=== PATIENT | male | born 1960 | race Caucasian/White ===

== ENCOUNTER 2021-03-04 18:00 | Inpatient (IN) | payer OTHER ==
[~2021-03-04] VITALS: Ht 182.9 cm; Wt 74.4 kg
--- NOTE | ~2021-03-04 | D ---
[facility] [place] [address] DISCHARGE SUMMARY Name: RAKESH CUEVA Room #: 528A-A [facility] IN M.R.#: [id number] Admission: 03/05/21 Attend Phys: Mckinley Mahmood DO Discharge: 03/10/21 Date of : 64 Report #: [id number] THIS REPORT FOR: cc: FAM - No family physician/PCP FAM - No family physician/PCP Mckinley Mahmood DO ~ DATE OF SERVICE: 03/10/2021 INPATIENT PSYCHIATRIC DISCHARGE SUMMARY ATTENDING PSYCHIATRIST: Mckinley Mahmood DO EMERGENCY MEDICAL SERVICE MANAGER AT TIME OF DISCHARGE: Vinnie Dixon M.D. DISCHARGE DIAGNOSES: Unspecified psychosis, resolved; substance use disorder for alcohol, severe degree; neurocognitive disorder, unspecified, likely due to alcoholism. MEDICAL COMORBIDITIES: Include ringworm, resolving; debility; history of AK without stenting on Coreg. DISCHARGE DISPOSITION: The patient is discharged to his apartment in [place], [place]. The patient is encouraged to establish with [facility] for dual diagnosis treatment and he was given an intake information. He has a primary care physician, ____ Priscila. He is encouraged to see within 1 month and actually there is an appointment social media sr strategy manager made for 03/23/2021 at 1000 hours. DISCHARGE MEDICATIONS: The patient's medications were e-scribed to [facility] in [place]. He has cephalexin 500 mg every 6 hours for 8 more doses for his wound infection, Coreg 3.125 mg oral twice daily with meals, Rx given for #60 for his hypertension, B12 500 mcg oral daily for supplementation, Rx given for #90, folic acid 1 mg oral daily for supplementation, Rx given for #90. DISCHARGE INSTRUCTIONS: Regular diet. No alcohol, no illicit drugs. The patient was given crisis suicide hotline information. He has a normal activity level. LABORATORY DATA: Significant laboratories this admission, hematology from 03/05, H and H of 13.0 and 39.5. He does have a macrocytosis of 103.4, white count 5.7, platelet count 231. Chemistries: Sodium 141 from 03/05, potassium 3.8, chloride 104, bicarbonate 25, anion gap 12, BUN 9, creatinine 0.8, estimated GFR ____, glucose 90, hemoglobin A1c 4.8, calcium 8.6, triglycerides 42, total cholesterol 195, LDL 80, HDL 97. B12 400, folate 3.9, which was low. TSH 2.184. Serum alcohol was negative on 03/05. COVID-19 PCR was negative on ____. [address] [address] DISCHARGE SUMMARY Name: RAKESH CUEVA Room #: 528A-A [facility] IN ..#: [id number] Admission: 03/05/21 Attend Phys: Mckinley Mahmood DO Discharge: 03/10/21 Date of : 64 Report #: [id number] REASON FOR ADMISSION: The patient was initially seen in the [facility] on the [place] side. He had fallen and lacerated his right arm. The patient had a significant level of alcohol intoxication and was quite cognitively impaired. Records from [facility] HOSPITAL COURSE: The patient was admitted to Geriatric Psychiatry Unit. He was placed on the CIWA protocol which was continued for over 24 hours. He had an uneventful detox. The patient does not have a more supportive living situation and has a brother who lives in [place] is somewhat estranged. The patient does have some detectable cognitive deficits, he scored a 23/30 on the [facility] Mental status examination. At this point, I would recommend wraparound dual diagnosis services as well as continued primary care. Abstinence from alcohol is essential, PT and OT saw the patient. The OT ____ with no problems. On the day of discharge, the patient was not suicidal or homicidal. PHYSICAL EXAMINATION: VITAL SIGNS: Temperature 36.1, pulse 78, respirations 17, BP 131/80, O2 sat 100%. MUSCULOSKELETAL: Slow gait, normal station, unkempt with appearance. MENTAL STATUS EXAMINATION: This is a well-developed, somewhat ill-appearing male appearing stated age. Attention limited. Concentration limited. Speech normal rate, volume, and tone. Thought process: Linear and goal directed. Thought content focused on discharge. Mood and affect are more constricted. Denied SI, HI. Denied auditory, visual, or tactile hallucination. Denied hopelessness, helplessness. Memory not formally tested. Insight and judgment were fair to sometimes limited. Fund of knowledge, no greater than average. Prognosis for this patient is guarded given his limited social support and long history of alcoholism. By: 05 04 Mckinley Mahmood, /nt
[2021-03-04 18:02] VITALS: BP 130/76
--- NOTE | 2021-03-04 19:10 | NUR ---
REPORT GIVEN APARNA MCWILLIAMS AT THIS TIME
[2021-03-05 02:45] VITALS: BP 156/88
[2021-03-05 04:00] VITALS: BP 123/78
--- NOTE | 2021-03-05 05:11 | NUR ---
PATIENT WAS ADMITTED TO THE UNIT VIA STRETCHER FROM THE ER. PATIENT IS AAOX3. STATES THAT HE DID NOT WANT TO COME TO A PSYCHIATRIC BLOCK. STATES THAT HE IS NOT SUICIDAL OR HOMICIDAL. STATES THAT HE DOES HAVE A DRINKING PROBLEM AND IS GETTING FORGETFUL. STATES THAT HE IS LONELY AND NEEDS ASSISTANCE OF SOME SORT TO HELP HIM WITH DAILY ACTIVITIES SUCH COOKING A FINANCES. PATIENT IS CALM AND COOPERATIVE AND SIGNS IN VOLUNTARILY. NOTED THAT PATIENT HAS ABRASIONS THROUGHOUT THE TOP OF HIS HEAD. HE ALSO HAS 3 LACERATIONS ON HIS R FA INCLUDING ONE THAT HAS BEEN STAPLED. DRESSING IS CHANGED AND WOUNDS ARE CLEAN AND DRY. PATIENT IS ABLE TO AMBULATE GINGERLY DUE TO HIS BACK HURTING. PT STATES THAT ALL OF HIS INJURIES OCCURED WHEN HE FELL AT HOME AND WENT THROUGH A GLASS TABLE. PATIENT IS GIVEN NON SKID SOCKS AND BED ALARM IS SET IN PLACE. PATIENTS VITAL SIGNS ARE STABLE. NOTIFIED TED HUNG NP AND JO-ANN MAGANA NP OF PT ARRIVAL TO THE UNIT. PT IS PLACED ON CIWA PROTOCOL. WILL CONTINUE TO MONITOR PATIENT FOR CHANGE IN STATUS.
[2021-03-05 06:43] LABS: CHOLESTEROL 185 mg/dL (<200); HDL CHOLESTEROL 97 mg/dL (>40); LDL CHOLESTEROL 80 mg/dL (<100); TC:HDL 1.9 Ratio (Not establshd); TRIGLYCERIDE 40 mg/dL (<150); VLDL 8 mg/dL (<40)
[2021-03-05 06:44] LABS: SERUM ASSESSMENT Clear
[2021-03-05 10:18] VITALS: BP 139/95
[2021-03-05 10:37] VITALS: BP 139/95
[2021-03-05 11:10] LABS: ABSOLUTE NEUTROPHILS 3.4 thou/uL (1.4-8.2); BASOPHILS 0.7 % (0.0-2.0); EOSINOPHILS 2.3 % (0.0-3.0); HEMATOCRIT 39.5 % (42.0-52.0); LYMPHOCYTES 24.1 % (24.0-44.0); MCH 33.9 pg (26.0-34.0); MCHC 32.8 g/dL (28.0-37.0); MCV 103.4 fL (80.0-100.0); MONOCYTES 12.7 % (1.0-8.0); PLATELET COUNT 231 thou/uL (150-400); POLYS 60.2 % (36.0-66.0); RBC 3.82 mil/uL (4.50-6.00); RDW 13.7 % (10.5-14.5); WBC 5.7 thou/uL (4.0-11.0)
[2021-03-05 11:58] LABS: FOLIC ACID 3.9 ng/mL (8.6-58.9)
[2021-03-05 12:00] LABS: CALCIUM 8.6 mg/dL (8.5-10.1); CREATININE 0.8 mg/dL (0.7-1.3); POTASSIUM 3.8 mmol/L (3.5-5.1)
--- NOTE | 2021-03-05 15:59 | NUR ---
RESUMMED CARE FROM OVERNIGHT SHIFT THIS AM, PATIENT IN DAY ROOM SITTING QUIET. PATIENT ALERT ORIENTED TIMES 4 PATIENT DENIES SI/HI/AH/VH AT PRESENT. PATIENT ATE MEALS TOOK MEDICATION WITHOUT INCIDENCE. PATIENTS RT ARM HAS A WOUND WITH STITCHES AND TOAN, THE WOUND NURSE CAME AND LOOKED ATE THE AREA AND ASK ME TO PUT A CONSULT FOR DR QUAN. I CALLED DR AVILES AND TOLD HIM THE AREA WAS RED AND COULD POSSIGLY HAVE SOME INFECCTION. DR AVILES ORDERED KEFLEX FOR PATIENT TO TAKE. PATIENTS ABDOMEN SOFT BOWEL SOUNDS PRSENT, PATIENTS LUNGS CLEAR. PATIENT PARTICIPATED IN GROUPS PATIENTS CIWA WAS A 3 THIS AM, THIS EVENNG HIS SCORE WAS A O. PATIENT UP WALKING AROUND WITH A WALKER, WILL CONTINUE TO MONITOR PATIENT FOR SAFETY AND BEHAVIORS.
--- NOTE | 2021-03-05 17:03 | NUR ---
ENOCH, Dr. Brown, and INCIDENT RESPONSE LEAD student met with the Pt. Pt was able to complete the assessment. Pt reported ETOH abuse. Pt stated he drinks about 1 pint of whiskey per day. Pt reported he has struggeld with ETOh abuse since college. Pt denied current drug use. Pt used marijuana in college. Pt reported attending AA for several years off and on. Pt stated his mother was an alcholic. Pt denied any physical or sexual abuse as an adult or child. Pt recieved SSI and has a payee. Pt could not remember who his payee was. Pt stated his brother Avinash Zuleta was his guardian. Pt did not know the name of his PCP. Pt denied any prior psychiatric stays. Pt denied SI/HI, AH/VH. Pt did give permission to contact his brother Avinash, but did not wish to stay in the room for the call. SW and INCIDENT RESPONSE LEAD student were able to contact Avinash and speak with him. Avinash stated he is no longer the Pt's guardian. Avinash gave some background. Pt has been in several nursing homes. Pt was dx with and alchol indueced dementia. Pt and Avinash don't get along. Pt has become "hateful" toward Avinash and beleived Avinash has taken items from him. Avinash stated he is unable to visit the Pt due to Pt getting aggitated and police having to be involved. Avinash stated he is able to assist in any way. There were no other questions or concerns at this time.
[2021-03-05 19:36] VITALS: BP 141/95
[2021-03-05 23:06] LABS: GLYCOHEMOGLOBIN (HGB A1C) 4.8 % (4.8-5.6)
--- NOTE | 2021-03-06 01:47 | NUR ---
PATIENT IS AAOX3 RESTING IN THE COMMON AREA. EXHIBITS NO S/S OF WITHDRAWAL. STATES THAT HE HAS HAD A GOO DDAY TODAY. PATIENT IS CALM POLITE AND COOPERATIVE. TAKES ALL OF HIS MEDICATINS ORDERED. STATES THAT HE IS FOCUSED ON GETTING THE HELP HIS NEEDS WITH SUBSTANCE ABUSE WELL THERAPY. HE COMPLIES WITH ALL INSTRUCTIONS. VSS. WILL CONTINUE TO MONITPR FOR CHANGES IN PATINT STATUS.
--- NOTE | 2021-03-06 10:58 | NUR ---
New admit to [facility] with etoh abuse, fall with lacerations. At time of visit, pt working with therapy. Chart reviewed, has eaten 100% of first few meals on the unit. Had 2 different wts 164 vs 190 lb and 164 lb appears most accurate. BMI 22 wnl. Folate deficient 3.9 and on folic acid supplement as well as B12, vitamin, thiamine. Low nutrition risk with appopriate nutrition interventions in place. Follow weights and intake trends for weekly team meeting.
[2021-03-06 11:19] VITALS: BP 142/97
[2021-03-06 11:30] VITALS: BP 142/97
--- NOTE | 2021-03-06 13:29 | NUR ---
RESUMMED CARE FROM OVERNIGHT SHIFT THIS AM, PATIENT ALERT ORIENTED TIMES 4. PATIENT ATE BREAKFAST TOOK MEDIATION WITHOUT INCIDENCE; I CHANGED PATIENT GAUZE ON RIGHT ARM. PATIENT DENIES SI/HI/AH/VH AT PRESENT, PATIENT PARTICIPATES IN GROUPS. PATIENTS ABDOMEN SOFT BOWEL SOUNDS PRESENT, PATIENTS LUNGS CLEAR. PATIENT INTERACTS WITH OTHER PATIENTS NO BEHAVIORS. WILL CONTINUE TO MONITOR PATIENT FOR SAFETY AND BEHAVIORS.
[2021-03-06 19:54] VITALS: BP 113/75
--- NOTE | 2021-03-07 03:20 | NUR ---
PATIENT IS AAOX4. HE IS CALM COOPERATIVE AND FOLLOWS ALL COMMANDS. TAKES ALL MEDICATIONS PRESCRIBED. STATES THAT HE FEELS HE SHOULD BE IN A DIFFERENT UNIT DUE TO THE FACT THAT HE IS NOT HAVING SI OR HI. STATES THAT HE HAS NEVER WANTED TO HURT HIMSELF OR ANYBODY ELSE. PT COGNITIVE ABILITY MUCH MORE ADVANCED THAN OTHER PEERS ON THE UNIT. HE HAS SHOWN NO S/S OF WITHDRAWAL FROM HIS ETOH ABUSE. VITAL SIGNS REMAIN STABLE. DENIES PAIN OR NEEDS. DRESSING TO R FA CHANGES.
[2021-03-07 07:34] VITALS: BP 134/94
--- NOTE | 2021-03-07 12:13 | NUR ---
HAS BEEN VISIBLE IN DAYROOM SITTING WITH PEERS CARLOS MANUEL OF AM-DID ATTEND ALL SCHEDULED GROUPS WTH GOOD LEVEL OF PARTICIPATION. DENIES SI/SH/HI.
--- NOTE | 2021-03-07 13:21 | NUR ---
vs q 4 hrs per ciwa protocol-no noted or reported tremor,n/v,elvated bp etc.. pt denies any s/s of etoh withdrawl
--- NOTE | 2021-03-07 19:33 | NUR ---
ASSUMED CARE ON 03/07/21 @ 1900, NO WITHDRAWAL SYMPTOMS NOTED NOR REPORTED. REQUESTS COFFEE AND ACCEPTED EDUCATION OF WHY CAFFENE IS INCOMPATABLE WITH MEDICATIONS AND SLEEP. BECOMES AGITATED AND IMPATIENT WITH PEERS HAVING BEHAVIORS, HOLLERING AT PEERS. WILL CONTINUE TO MONITOR FOR SAFETY AND COMFORT.
[2021-03-07 19:45] VITALS: BP 130/75
--- NOTE | 2021-03-07 22:30 | H ---
[facility] [address] [place] [address] HISTORY AND PHYSICAL Name: RAKESH CUEVA Room #: 527A-A ADM IN M.R.#: [id number] Admission: 03/05/21 Attend Phys: Mckinley Mahmood DO Discharge: Date of : 64 Report #: [id number] THIS REPORT FOR: cc: FAM - No family physician/PCP FAM - No family physician/PCP Mckinley Mahmood DO ~ DATE OF SERVICE: 03/05/2021 INPATIENT PSYCHIATRIC EVALUATION ATTENDING PSYCHIATRIST: Mckinley Mahmood DO CABIN CREW: Marcy Obrien APRN and Rusty Piña MD and his hospitalist team. REASON FOR ADMISSION: Concern for alcohol withdrawal complications, concern for neurodegenerative disorder. SOURCES OF INFORMATION: Interview with the patient, records from [facility], records here at [facility]. CHIEF COMPLAINT: "I dont know why I was sent here" HISTORY OF PRESENT ILLNESS: This is a 60-year-old male transferred from [facility] ER. Apparently, he called 911 for falling, hit his arm on a glass table, large laceration, significant blood loss, required tamika. He has a past medical history of substance use disorder for alcohol, severe; Wernicke's encephalopathy. In terms of his drinking behavior, he reports drinking a pint a day of whiskey. His blood alcohol level on 03/05/2021 in the ER presentation was 341. The patient denied anxiety, feelings of hopelessness, SI, TATE, auditory or visual hallucinations. He denies history of alcohol withdrawal seizures or delirium tremens. The patient does display fine tremor with both his arms and hands extended. MEDICATIONS: No medications. ALLERGIES: No known allergies. REVIEW OF SYSTEMS: from [facility] CONSTITUTIONAL: Denies fever or chills. Reports 6/10 crampy and lower back pain from his fall. HEENT: Denies tinnitus, sore throat, eye pain. Reports blurred vision without prescription glasses. RESPIRATORY: Denies shortness of breath or cough. CARDIOVASCULAR: Denies chest pain, heart palpitations. GASTROINTESTINAL: Denies nausea, vomiting, diarrhea, constipation. [facility] [address] [place] [address] HISTORY AND PHYSICAL Name: RAKESH CUEVA Room #: 527A-A ADM IN [facility].#: [id number] Admission: 03/05/21 Attend Phys: Mckinley Mahmood DO Discharge: Date of : 64 Report #: [id number] GENITOURINARY: Denies difficulty urinating, painful urination. MUSCULOSKELETAL: Denies joint pain, numbness or tingling in extremities. SKIN: Reports itching on scalp. He does have skin lesions concerning for atopy versus parasite in nature and consultation has been requested. LABORATORY DATA: From [facility], white blood count 5.7, hemoglobin 13.0, hematocrit 39.5, platelets 231. Sodium 141, potassium 3.9, BUN 9, creatinine 0.8, glucose 99. Folate 3.9. Serum alcohol less than 10. VITAL SIGNS: Temperature 36.3, pulse 86, respirations 16, BP 139/95, O2 sat 98% on room air. PAST PSYCHIATRIC HISTORY: Includes alcohol use disorder, severe. He had a past CD stay for 30 days. Alcoholics Anonymous on and off for years, attempted sobriety on and off a few times. Unclear diagnosis of Wernicke-Korsakoff syndrome. FAMILY PSYCHIATRIC HISTORY: Reports alcoholism runs in his family. PAST MEDICAL HISTORY: Myocardial infarction, age of 44. Uncertain of the primary care physician name and location. PAST SURGICAL HISTORY: Denies. SOCIAL HISTORY: Born in [place], moved to [place], [place] when he was 3. Graduated with a bachelor's degree at [employer], x1 for 11 years. Moved to [place] for 11 years to raise his 2 children, daughter and son. Moved to [place], [place] after he and his because at time his father who is now , lived in [place]. The patient lives now in [place], [place] in an apartment by himself. Poor social support, no contact with his children for 2 years. Uncertain where they are currently living. Uncertain, past occupations, currently on disability for "my heart attack and memory." His brother used to be his legal guardian, unable to hold his guardianship due to dysfunctional dynamics between him and his brother. He has not been seen, talk with him for about 4 months now stating "he has a real hatred for me, blames me for everything that went on in his life." The patient states he cannot remember if his brother is still his guardian. "I have a lady who pays my bills for me, but I do not know her name." He further reports poverty of food and lack of transportation. Denies tobacco or illicit substance use. MENTAL STATUS EXAMINATION: A 60-year-old male presenting stated age, [facility] [address] [place] [address] HISTORY AND PHYSICAL Name: RAKESH CUEVA Room #: 527A-A ADM IN M.R.#: [id number] Admission: 03/05/21 Attend Phys: Mckinley Mahmood, DO Discharge: Date of : 64 Report #: [id number] disheveled, multiple head lacerations, rash around his neck concerning for ITP versus parasitic in nature, hematoma on his right arm with tamika. He has a Kerlix wrapped around his right lower forearm. Fair eye contact, normal rate and tone and speech. Thought process: Linear and goal directed with some blocking. Denied suicidal or homicidal ideation, though some helplessness. He was alert and oriented x4. Insight fair to limited. Judgment limited. Fund of knowledge fair. Attention and concentration, gross executive dysfunction, unable to draw a clock with correct time. He had an error on SLUMS subtle, but his deficits are in the executive memory arena. FORMULATION: A 60-year-old male transferred here for concern of alcohol withdrawal, altered mental status, concern of dementia. DIAGNOSES: At this time, substance use disorder for alcohol, severe degree; alcohol intoxication, resolved; alcohol withdrawal currently, rule out major neurocognitive disorder; Wernicke-Korsakoff syndrome by history. PLAN: Place the patient on CIWA protocol. Start scheduled thiamine 100 mg 3 times a day. We will see how he does the next day, getting through alcohol withdrawal. Additional information laboratories today showed white count 5.7, H and H 13.0 and 39.5, MCV 103.4. ANC was normal, slightly increased monocyte percentage. His CMP was completely normal. B12 level 400, folate 3.9. TSH 2.184. As he is now already inclined to go ahead and put him on B12 supplementation, looks like the hospitalist has done. Additional plan includes complete CIWA protocols, cephalexin 500 mg q. 6, started by Dr. Dixon as well as Mupirocin ointment for forearm laceration and folic acid as well, vitamin. ESTIMATED LENGTH OF STAY: 5-10 days. One of the challenges of the situation is since he is a [place] resident, there is no way we could get him a guardianship. We will assess his functional level and further supports for him and have to be worked out after discharge because I think he is going to have to go back to his apartment in [place] no matter what. We will attempt to get the family involved. Time spent on this case, greater than 60 minutes, greater than 50% of time was review of records and coordination of care. stengths: insured, has apartment [address] [address] HISTORY AND PHYSICAL Name: RAKESH CUEVA Room #: 527A-A ADM IN .R.#: [id number] Admission: 03/05/21 Attend Phys: Mckinley Mahmood DO Discharge: Date of : 64 Report #: [id number] weaknesses: chronic alcoholism, poor cpoing skills, isolated cognitive impairment <ELECTRONICALLY SIGNED> By: Mckinley Mahmood DO 03/07/21 2230 [id number] Mckinley Mahmood, DO /nt
[2021-03-08 10:45] VITALS: BP 132/86
[2021-03-08 10:47] VITALS: BP 132/86
--- NOTE | 2021-03-08 13:06 | NUR ---
RESUMMED CARE FROM OVERNIGHT THIS AM, PATIENT SITTING IN DAY ROOM QUIET. PATIENT ALERT ORIENTED TIMES 4 PATIENT ATE BREAKFAST TOOK MEDICATION WITHOUT INCIDENCE. PATIEMT DENIES SI/HI/AH/VH AT PRESENT, PATIENTS LUNGS CLEAR ABDOMEN SOFT BOWEL SOUNDS PRESENT. PATIENT CALM COOPERATIVE PARTICIPATES IN GROUPS PATIENT HAS NOT DISPLAYED ANY BEHAVIORS HE WOULD LIKE SOME SERVICES AT HOME FOR HE DISCHARGES. PATIENTS WOUND IS LOOKING GOOD LESS REDNESS WILL CONTINUE TO MONITOR PATIENT FOR SAFETY AND BEHAVIORS.
--- NOTE | 2021-03-09 02:06 | NUR ---
PATIENT SAT UP IN DINING ROOM THIS EVENING WATCHING THE Telecardia SERIES UNTIL 2200 WHEN HE WENT TO BED. HE HAD C/0 LEFT SIDED BACK PAIN FROM EXTENSIVE BRUISING FROM A FALL BEFORE COMING TO THE HOSPITAL. TYLENOL 650MG PO GIVEN WITH PAIN RELIEF. PATIENT ALSO HAS A DRESSING ON RIGHT FOREARM COVERING TOAN FROM FALL BEFORE ADMISSION ALSO. TOAN INTACT AND NO SIGN OF INFECTION OR DRAINAGE. PATIENT ALSO HAS RING WORM ON NECK AND CHEST. MEDS APPLIED. NO ITCHING NOTED. SCABS ON PATIENT'S SCALPS DRY AND INTACT. PATIENT IS UP WITH WALKER. HE IS A/0X2-3 AND IS FORGETFUL. HE DENIES SI/HI/AVH. PATIENT TOOK HIS MEDS WHOLE WITH WATER. HE HAS BEEN CALM AND COOPERATIVE. HE HAD HS SNACK. HE IS VERY CONCERNED ABOUT THE BEHAVIORS OF OTHER PATIENTS AND IS CONCERNED FOR THE SAFETY OF THE STAFF THAT HAVE TO INTERVENE WITH THE NEGATIVE BEHAVIORS OF PATIENTS. ASSURED HIM THAT THE STAFF IS TRAINED AND THAT SECURITY GETS HERE QUICKLY WHEN CALLED. THANKED HIM FOR HIS CONCERN. HE STATES IT'S HARD FOR HIM TO SIT BACK AND NOT STEP IN AND HELP PROTECT OTHERS. ROUTINE ROUNDS TO ASSESS SAFETY AND STATUS OF PATIENT. BED IN LOW POSITION AND BED ALARM IS ON.
[2021-03-09 09:39] VITALS: BP 140/91
--- NOTE | 2021-03-09 11:01 | HC ---
[facility] [place] [address] [place] [address] CONSULTATION Name: ANAYRAKESH PINK Room #: 527A-A ADM IN M.R.#: [id number] Admission: 03/05/21 Attend Phys: Mckinley Mahmood DO Discharge: Date of : 64 Report #: [id number] THIS REPORT FOR: cc: FAM - No family physician/PCP FAM - No family physician/PCP John Funes MD ~ DATE OF SERVICE: 03/05/2021 CHIEF COMPLAINT: Rash and a traumatic wound. HISTORY OF PRESENT ILLNESS: This is a 60-year-old male patient who was admitted to the geriatric psych unit from . He has a history of Wernicke's encephalopathy related to previous alcohol use. He was noted to have a laceration to his right forearm, which had undergone repair perhaps as recently as in the last day or two. The patient has very little information to provide about the injury. He also was noted to have a rash on the back of his neck for which I have been asked to see him. PAST MEDICAL HISTORY: Positive for history of alcohol abuse and encephalopathy. Other details of his past history are unknown and the patient is a very unreliable historian. ALLERGIES: No known drug allergies. MEDICATIONS: Include Tylenol, Keflex, cyanocobalamin, famotidine, folic acid. SOCIAL HISTORY: Positive for significant alcohol use. Tobacco unknown. FAMILY HISTORY: Unknown. REVIEW OF SYSTEMS: Really unobtainable other than what is listed in the history of present illness. The patient is unable to provide any specific information. PHYSICAL EXAMINATION: VITAL SIGNS: The patient's vital signs at this time include temperature 98.6, pulse 88, respiratory rate 18, blood pressure 123/78. GENERAL: This is a chronically ill-appearing male patient who appears to be in no obvious distress. HEENT: Head is normocephalic. Extraocular movements are intact. Nose and throat are clear. NECK: Supple. LUNGS: Diminished. HEART: Regular. ABDOMEN: Soft. SKIN: Examination of the skin shows erythematous patches on the back of his neck and upper back that may be consistent with tinea, question that the patient [address] [address] CONSULTATION Name: RAKESH CUEVA Room #: 527A-A ADM IN [facility].#: [id number] Admission: 03/05/21 Attend Phys: Mckinley Mahmood DO Discharge: Date of : 64 Report #: [id number] has a laceration to the volar surface of his right forearm and has sutures and tamika in place, does not appear to be overtly infected. LABORATORY STUDIES: Include sodium 141, potassium 3.8, chloride 104, CO2 of 25, BUN 9, creatinine 0.8, glucose of 90. White blood cell count 5.7 with a hemoglobin of 13.0, hematocrit of 39.5. CLINICAL IMPRESSION: 1. Traumatic laceration and abrasions to the right forearm. 2. Tinea to the posterior neck and upper back. RECOMMENDATIONS: At this point, we will recommend topical Bactroban ointment, Xeroform, Kerlix and tape to the right forearm. Antibiotics have currently been ordered. We recommend that the suture material be left in place for 10 to 14 days. Additionally, we will recommend topical clotrimazole cream to the neck and upper back areas to be applied b.i.d. Hopefully, keeping the area clean and dry. Recommend aggressive nutritional support. I appreciate being asked to see him in consultation. <ELECTRONICALLY SIGNED> By: John Funes MD 03/09/21 1101 [id number] John Funes MD /nt
--- NOTE | 2021-03-09 17:35 | NUR ---
ENOCH contacted Dorian Cristina, , at [facility] concerning the Pt's property. ENOCH informed the Pt believes he left his wallet and keys at the hospital. Dorian stated she would check and call ENOCH back. ENOCH later recieved a call back from Dorian. Dorian informed she was able to to speak with the Nurse who worked with the Pt in the ER, Meghann. Meghann reported that she wrote a note concerning the Pt's property. In the note there was no wallet or keys idenitifed in the Pt's property at admission or discharge. There were no other concerns during this call. ENOCH checked the Pt's inventory sheet here on [facility]. Pt did not arrive with any property
--- NOTE | 2021-03-09 17:41 | NUR ---
ENOCH spoke with the Pt concerning discharge. ENOCH informed Pt that [facility] did not have record of Pt bringing keys or wallet. SW asked if he was able to acess his apartment or if anyone had a spare martinez. Pt stated no. Pt stated he needed to get in contact with his payee that could help him. however Pt did not know who that was. Pt also did not know who his landlords were or how to contact them in case of an emergency. Pt is unsure if he left his apartment unlocked. SW attempted to contact the Pt's brother, Avinash, for assistance. Avinash did not answer and his VM was full. ENOCH informed Dr. Brown of the matter. Discharge is set for 03/10/2021 @ 1030. Pt will need to complete a walk in at [facility] for an intake for [facility] services. This information was given verbally to the Pt and put on the discharge document
[2021-03-09 17:46] VITALS: BP 140/91
[2021-03-09 19:00] VITALS: BP 118/77
--- NOTE | 2021-03-09 19:53 | NUR ---
Patient care resummed, patient was located up and in the day room apon shift change. Patient presented to IMMIGRATION PATROL INSPECTOR pleasent, cooperative, and a little anxious. Patient stated to IMMIGRATION PATROL INSPECTOR he is worried about going home because he doesn't have his wallet/keys/phone, and that he doesn't have transportation to get his tamika removed. Patient denied SI/HI/AVH/Pain/Depression but did admitt to having some anxiety. Patient A&O*3 with some confsuion noted throughtout the day, patient even stated to IMMIGRATION PATROL INSPECTOR "I have some memory issues." Patient does have 3 lacerations to the right forarm, 1 which was closed with tamika and sutures. IMMIGRATION PATROL INSPECTOR removed tamika and sutures today per orders for removel after 7 days. Patient denies pain at all 3 incision sites. 2 of the 3 sites have steri:strips applied to them, and bedside education was given for patients understanding. Patient also noted to have Ring Worm to the neck and chest which medication was applied to today. Patient ambulates without aid and has a steady gait. [facility]. IMMIGRATION PATROL INSPECTOR did speak with the Son APRYL at 1935 per patient/son request. Son wants to speak with the director social service (Michaela) and tomruss morning before the patient is discharged Son stated he is worried the patient is unstable and too confused to be discharged home and wonders if he would be better fit to a LTC facility. IMMIGRATION PATROL INSPECTOR informed son that these employees were out for the day and he could call back in morning as well as IMMIGRATION PATROL INSPECTOR would leave message. Seziure and fall precautions are in place. Will continue to monitor patient for safety and behaviors.
[2021-03-09 20:00] VITALS: BP 118/77
--- NOTE | 2021-03-10 03:28 | NUR ---
PATIENT CARE WAS RESUMED AT 1900. HE IS ALERT AND ORIENTED. AMBULATES AND ABLE TO VERBALIZE HIS NEED. MODERATE ASSIST WITH CARE. HE DENIES PAINS/AVH/SI/HI. TOOK HIS MED WHOLE.HE IS CONTINENET OF BOWEL AND BLADDER. BED IS LOW, LOCKED AND ALARMED
[2021-03-10] MEDS ORDERED: CARVEDILOL3.125 MG PO (09:16)
[2021-03-10] MEDS ORDERED: Cephalexin 500 MG Ca PO (09:16)
[2021-03-10] MEDS ORDERED: B-12500 MCG PO (09:17)
[2021-03-10] MEDS ORDERED: FOLIC ACID1 MG PO (09:17)
[2021-03-10 09:41] VITALS: BP 131/82
[2021-03-10 10:11] VITALS: BP 131/82
--- NOTE | 2021-03-10 10:31 | NUR ---
0482 ENOCH called Avinash. ENOCH was able to speak to Avinash concerning the Pt losing his martinez and not having acess to his home. Avinash stated that he is able to assist. Avinash offered to go to the Pt's home to see if the door is unlocked. If the door was not Avinash stated he is aware of the property management company and could get a spare martinez to unlock the Pt's home. Avinash stated he would call ENOCH concerning the matter. ENOCH did inform the Pt of this. Avinash did give verbal consent to speak to Avinash about his treatment and dicharge recommendations.
--- NOTE | 2021-03-10 10:40 | NUR ---
ENOCH recieved a call from [facility], . ENOCH informed that information pertaining to the Pt could not be given due to not having a KEYANNA on file. [facility] asked general questions about resources in the [facility]. ENOCH provided information on medical transportation, meal on wheels, the [facility], and assisted living. ENOCH provided education on DPOA and guardianship. There were no other concerns or questions.
--- NOTE | 2021-03-10 12:12 | NUR ---
Pt has a follow up appointment with PCP- Dr. Tigre Francois 03/23/2021 @1000. SW informed the Pt of this verbally and also put information on the discharge summary
--- NOTE | 2021-03-10 12:46 | NUR ---
PATIENT CARE ASSUMED AT 0700 - ALERT AND ORIENTED. STATED READY TO GO HOME. UNDERSTANDS IMPORTANCE OF SEEKING OUTSIDE SUPPORT FOR ALCOHOL DEPENDENCY. STATED HAS BEEN IN [facility] BEFORE AND PLANS ON ATTENDING ONCE AGAIN. PATIENTLY WAITING TO DEPART HOME. CONCERNED ABOUT CONDO AND ITEMS HE LEFT BEHIND. REVIEWED PAPERWORK WITH PATIENT AND EXPLAINED APPOINTMENTS SET UP FOR HIM. SUPPLIED CLOTHES AND SHOES FOR PATIENT SINCE UNABLE TO ACCOUNT FOR ANY WHEN BROUGHT IN TO UNIT FROM [facility]. MADE ARRANGEMENTS TO HAVE PATIENT TRANSPORTED BACK TO HIS RESIDENCE FROM OUR FACILITY. DENIES S/I OR H/I -
== END 2021-03-10 13:25 | disposition home or self-care (01) | DRG 897 ==
LOC: ER 18:00 → SBH 03-05 02:40
PROVIDERS: Nurse Practitioner Family; Student in an Organized Health Care Education/Training Program; ADMIT Psychiatry & Neurology Psychiatry; ATTEND Psychiatry & Neurology Psychiatry
DX: F10.239 Alcohol dependence with withdrawal, unspecified (principal); G93.40 Encephalopathy, unspecified; Z20.822 Contact with and (suspected) exposure to COVID-19; S50.811A Abrasion of right forearm, initial encounter; F29 Unspecified psychosis not due to a substance or known physiological condition; F10.229 Alcohol dependence with intoxication, unspecified; S51.811A Laceration without foreign body of right forearm, initial encounter; R41.9 Unspecified symptoms and signs involving cognitive functions and awareness; Z60.2 Problems related to living alone; R53.81 Other malaise; Z71.41 Alcohol abuse counseling and surveillance of alcoholic; I25.2 Old myocardial infarction; W25.XXXA Contact with sharp glass, initial encounter; Y93.89 Activity, other specified; Y92.89 Other specified places as the place of occurrence of the external cause; Y99.8 Other external cause status; Z23 Encounter for immunization
CPT/HCPCS: 10880